=== PATIENT | male | born 1975 | race Two or more races ===

== ENCOUNTER 2024-01-09 20:37 | Emergency (ER) | payer SELFPAY ==
[~2024-01-09] VITALS: Ht 165.1 cm; Wt 94.7 kg
[2024-01-09 22:23] LABS: Hematocrit 40.5 % (41.0-53.0); Mean Corpuscular Hemoglobin 26.7 pg (28.0-32.0); Mean Corpuscular Hgb Conc. 32.1 g/dL (32.0-36.0); Mean Corpuscular Volume 83.4 fL (80.0-100.0); Platelet Count (auto) 306 10^3/uL (140-450); Red Blood Cells 4.85 10^6/uL (4.5-5.90); White Blood Cell 8.7 10^3/uL (4.4-10.8)
[2024-01-09 22:25] LABS: Red Cell Distribution Width 20.6 % (11.8-14.3)
[2024-01-09 22:26] LABS: Band Neutrophils % (manual) 0; Basophils % (manual) 0 (0.0-2.0); Blast Cells 0; Metamyelocytes % 0; Myelocytes % 0; Promyelocytes % 0; Reactive Lymphocytes 0
[2024-01-09 22:41] LABS: Alanine Aminotransferase 81 U/L (7-40); Albumin 4.8 g/dL (3.2-4.8); Alkaline Phosphatase 88 U/L (46-116); Anion Gap 10 (5-15); Aspartate Aminotransferase 45 U/L (13-40); BUN/Creatinine Ratio 12.6 (10.0-20.0); Bilirubin, Total 0.5 mg/dL (0.2-1.0); Blood Urea Nitrogen 12 mg/dL (9-23); Calcium 10.4 mg/dL (8.7-10.4); Carbon Dioxide 25 mmol/L (20-31); Chloride 110 mmol/L (98-107); Glucose 114 mg/dL (74-106); Potassium 3.8 mmol/L (3.5-5.1); Sodium 145 mmol/L (136-145); Total Protein 7.9 g/dL (5.7-8.2)
[2024-01-09 22:44] LABS: Eosinophils % (manual) 16 (0-7); Lymphocytes % (manual) 31 (10.0-50.0); Monocytes % (manual) 9 (0-12); Platelet Estimate Adequate
[2024-01-09 22:45] LABS: Anisocytosis Slight
[2024-01-10 00:30] VITALS: BP 130/88; PULSE 63; RESP 17; TEMP 98.4; O2SAT 97
== END 2024-01-10 00:51 | disposition home or self-care (01) ==
LOC: ER 20:37
DX: R07.89 Other chest pain (principal); F41.9 Anxiety disorder, unspecified
CPT/HCPCS: 36415; 71045; 80053; 84484; 85007; 85027; 93005